=== PATIENT | male | born 1940 | race Caucasian/White ===

== ENCOUNTER 2018-06-06 12:41 | Observation (INO) ==
[2018-06-06] MEDS ORDERED: ASPIRIN 81 MG TAB.CHEW PO ONE (13:09)
[2018-06-06 13:12] LABS: Hematocrit 40.6 % (42.0-52.0); Hemoglobin 14.1 gm/dL (13.5-18.0); Mean Cell Volume 99.5 fl (78-100); Mean Corpuscular Hemoglobin 34.6 pg (27-31); Mean Corpuscular Hgb Conc 34.7 g/dl (32-36); Mean Platelet Volume 9.9 fl (8-11.3); Neutrophil # 3.9 K/mm3 (1.3-6.0); Neutrophil % 57.8 % (42-75.0); Platelet Count 160 K/mm3 (150-450); Red Blood Count 4.08 M/mm3 (4.7-6.0); Red Cell Distribution Width 11.9 % (11.5-14.0); White Blood Count 6.8 K/mm3 (4.0-10.5)
[2018-06-06 13:23] LABS: Prothrombin Time (Patient) 10.6 Seconds (9.1-10.7)
[2018-06-06 13:29] LABS: INR 1.07 INR (0.92-1.08); Partial Thrombolplastin Time 22.7 Seconds (24-32)
[2018-06-06 13:30] LABS: Albumin * 3.4 gm/dl (3.4-5.0); Anion Gap 13.5 mmol/L (6.8-13.8); BUN/Creatinine Ratio 10.7 (9.0-21.6); Bilirubin, Total 1.6 mg/dL (0.0-1.1); Ca. Corrected For Albumin 8.8 mg/dL (8.4-10.2); Calcium * 8.6 mg/dL (7.9-10.9); Carbon Dioxide 25.6 mmol/L (24-32.6); Potassium 4.1 mmol/L (3.4-4.6); Total Protein 7.3 gm/dL (6.2-8.2); Troponin I 0.045 ng/mL (0.00-0.10)
[2018-06-06] MEDS: NITROGLYCERIN 0.4 MG/TAB BTL SL PRN ×3 (13:46→13:59)
[2018-06-06] MEDS ORDERED: LEVOFLOXACIN IN DEXTROSE 5 % 500 MG/100 ML BAG IV SCH (15:15)
[2018-06-06] MEDS ORDERED: NITROGLYCERIN 1 INCH PACKET TD ONE (15:53)
[2018-06-06] MEDS ORDERED: ENOXAPARIN SODIUM 100 MG/ML SYRG SC ONE (15:57)
--- NOTE | 2018-06-06 16:44 | ERNOTE ---
Chest Pain/Cardiac HPI Date of Service: 06/06/18 Chief Complaint: Chest Pain Time Seen by Provider: 06/06/18 13:07 Source: patient Exam Limitations: no limitations Immunizations: IMMUNIZATION HX Immunizations Up to Date Yes History of Influenza Vaccine Yes Hx Pneumococcal Vaccination Yes Allergies/Adverse Reactions: Allergies No Known Allergies Allergy (Verified 06/06/18 12:48) Home Medications: HOME MEDICATIONS Atenolol 01/13/15 [Last Taken Unknown] Losartan Potassium 01/13/15 [Last Taken Unknown] Simvastatin 01/13/15 [Last Taken Unknown] Narrative: Patient presents to the ED for chest pain and left arm pain. He has been having some issues for over a week now. he had been seen here and went to [facility] due to elevated trop. That apparently normalized and he was sent home with a diagnosis of influenza and is on ABx. He developed left arm pain today and chest pain with nausea. This is like what he gets with prior cardiac pain by his report. He has been coughing wite thick sputum. No fever. ASA and NTG given here. Pain resolved with NTG. Timing: constant Severity/Quality: moderate Location: left chest Chest Pain Radiation: other - left arm Activities at Onset: none Modifying Factors - Improves: Present: nitroglycerin Modifying Factors - Worsens: Present: nothing Nitro Today/Relief: provided by ED Aspirin Treatment Today: provided by ED Associated Symptoms: Present: nausea. Absent: headache, diaphoresis, vomiting Prior Chest Pain/Cardiac Workup: Reports: prior chest pain, other - recent elevated trop, no diagnostic testing by report Prior Treatment: Reports: recently hospitalized, currently on antibiotics Review of Systems - Review of Systems Constitutional: Absent: fever ENT: Absent: sore throat Respiratory: Present: cough Cardiology: Present: chest pain Gastrointestinal/Abdominal: Absent: abdominal pain Genitourinary: Absent: dysuria Skin: Absent: rash All Other Systems: All systems neg except as marked Medical History (Last Reviewed 06/06/18 @ 16:38 by Stanley Tristan MD) HTN (hypertension) Heart attack Hyperlipemia Stroke Surgical History: Surgical History (Last Reviewed 06/06/18 @ 16:38 by Stanley Tristan MD) H/O heart artery stent H/O neck surgery Previous back surgery Family History: Family History (Last Reviewed 06/06/18 @ 16:38 by Stanley Tristan MD) Other No pertinent family history Social History: Preferred Language Northern Irish Smoking Status Never smoker Alcohol Use none Drug Use none No Social History Section defined Physical Exam - Physical Exam General Appearance: Present: alert, no apparent distress Head Exam: Present: normal inspection, no evidence of injury Eye Exam: Normal inspection: bilateral, PERRL: bilateral Ears, Nose, Throat: Present: normal ENT inspection Neck: Present: normal inspection Respiratory: Present: no respiratory distress, normal breath sounds, no accessory muscle use, lungs clear Cardiovascular/Chest: Present: regular rate, rhythm, normal peripheral pulses Gastrointestinal/Abdominal: Present: normal bowel sounds, nontender, nondistended, soft Back Exam: Present: normal range of motion Extremity Exam: Present: normal inspection, other - no CVA tenderness Neurological Exam: Present: alert, no motor/sensory deficits Skin Exam: Present: normal color, warm/dry Progress - Results and Orders Patient's Lab Results:: I have reviewed the patient's lab results. - Vital Signs Patient's Vital Signs:: I have reviewed the patient's vital signs. Vital Signs: Vital Signs 06/06/18 12:50 06/06/18 13:47 06/06/18 13:55 Temperature 36.2 C Pulse Rate 71 58 L 58 L Respiratory Rate 18 15 14 Blood Pressure 136/73 155/83 H 132/68 O2 Sat by Pulse Oximetry 97 96 92 L 06/06/18 14:50 06/06/18 16:17 Temperature Pulse Rate 59 L 109 H Respiratory Rate 19 15 Blood Pressure 149/75 172/80 H O2 Sat by Pulse Oximetry 94 96 - EKG EKG #1 EKG read: Interp. by me EKG Comments: NSR rate 68. Non-specific, no STEMI noted. - X-Ray X-Ray #1 X-Ray: chest Interpretation: Interp. by me X-ray Comments: I reviewed official radiology report - CT/Ultrasound CT/Ultrasound Narrative: I reviewed official CT report Chest CT per radiology. - Progress/Reassessment Chief Complaint: Chest Pain Progress Note-Subjective: 06/06/18 16:41 Patient pain free with ASA and NTG. TF NTG placed. Patient had infectious Sx, based on my read of his CXR I initiated Levaquin, however CT did not show pneumonia. CT did reveal possible although unlikely filling defect. Lovenox given. I felt patient needed rule out and observation. [facility] ok'd stay here. Patient wanted to stay here vs go back to [facility]. D/W Dr Dyson who will admit the patient obs. Patient agreeable. Departure Clinical Impression: Chest pain - Departure Disposition: Still a patient Condition: Stable
--- NOTE | 2018-06-06 18:39 | HP ---
Chief Complaint - Chief Complaint Date of Service: 06/06/18 Time of Service: 18:26 Chief Complaint: left chest pressure History of Present Illness: Patient with past medical history of previous DE, hypertension, recent positive influenza diagnosis presented to the ER for left-sided chest and arm pressure. He had been in our ER last week, and was shipped to [facility] for an elevated troponin. He was treated with Tamiflu and possibly azithromycin for the flu and upper respiratory infection. He was discharged 3 days prior. He had an DE around 1988, and he states his presentation at that time was purely nausea. He was given Nitropaste in the ED, and his chest pressure and nausea have subsided. He does have some upper respiratory congestion and shortness of breath. Medical History (Last Reviewed 06/06/18 @ 17:58 by Karen Miels RN) HTN (hypertension) Heart attack Hyperlipemia Stroke Surgical History: Surgical History (Last Reviewed 06/06/18 @ 17:58 by Karen Miles RN) H/O heart artery stent H/O neck surgery Previous back surgery Family History: Family History (Last Reviewed 06/06/18 @ 17:58 by Karen Miles RN) Other No pertinent family history Social History: Patient Lives/Resources Home Utilized Occupation Retired Preferred Language Welsh Smoking Status Former smoker Have you smoked in the past 12 No months Alcohol Use none Drug Use none No Social History Section defined Review Of Systems (GEN) - Review of Systems Generalized/Overall Review: Absent: Fever EENTM: Present: Nose Congestion Respiratory: Present: Shortness of Breath. Absent: Wheezing Cardiac: Present: Other - Chest pressure on the left Abdominal: Present: Nausea. Absent: Vomiting, Diarrhea Genitourinary: Present: No Symptoms Reported Skin: Present: No Symptoms Reported Immunizations: IMMUNIZATION HX Immunizations Up to Date Yes History of Influenza Vaccine Yes Hx Pneumococcal Vaccination Yes Allergies/Adverse Reactions: Allergies Allergy/AdvReac Type Severity Reaction Status Date / Time No Known Allergies Allergy Verified 06/06/18 17:58 Home Medications: HOME MEDICATIONS Atenolol 01/13/15 [Last Taken Unknown] Losartan Potassium 01/13/15 [Last Taken Unknown] Simvastatin 01/13/15 [Last Taken Unknown] Exam - Exam Vital Signs: Vital Signs - Last Taken Temp 36.3 C 06/06/18 17:50 Pulse 62 06/06/18 17:50 Resp 16 06/06/18 17:50 BP 127/61 06/06/18 17:50 Pulse Ox 97 06/06/18 17:50 Constitutional: Present: Alert, Oriented x3, Obese Respiratory: Present: normal breath sounds, no respiratory distress Cardiovascular/Chest: Present: regular rate, rhythm, no chest tenderness, no murmur, other - Bowel sounds in the chest. Absent: edema Abdomen: Present: soft, nontender Neurologic: Present: normal mood/affect Diagnostic Studies: Abnormal Lab Results 06/06/18 06/06/18 06/06/18 Range/Units 13:07 13:07 13:07 RBC 4.08 L (4.7-6.0) M/mm3 Hct 40.6 L (42.0-52.0) % MCH 34.6 H (27-31) pg Monocytes % 12.3 H (0.0-9) % PTT ([place]) 22.7 L (24-32) Seconds D-Dimer (0.19-0.49) ug/mL Random Glucose 124 H (70-110) mg/dL Total Bilirubin 1.6 H (0.0-1.1) mg/dL 06/06/18 Range/Units Unknown RBC (4.7-6.0) M/mm3 Hct (42.0-52.0) % MCH (27-31) pg Monocytes % (0.0-9) % PTT ([place]) (24-32) Seconds D-Dimer 0.87 H (0.19-0.49) ug/mL Random Glucose (70-110) mg/dL Total Bilirubin (0.0-1.1) mg/dL Laboratory Results WBC 6.8 K/mm3 (4.0-10.5) 06/06/18 13:07 RBC 4.08 M/mm3 (4.7-6.0) L 06/06/18 13:07 Hgb 14.1 gm/dL (13.5-18.0) 06/06/18 13:07 Hct 40.6 % (42.0-52.0) L 06/06/18 13:07 MCV 99.5 fl (78-100) 06/06/18 13:07 MCH 34.6 pg (27-31) H 06/06/18 13:07 MCHC 34.7 g/dl (32-36) 06/06/18 13:07 RDW 11.9 % (11.5-14.0) 06/06/18 13:07 Plt Count 160 K/mm3 (150-450) 06/06/18 13:07 MPV 9.9 fl (8-11.3) 06/06/18 13:07 Immature Gran % (Auto) 0.40 % (0.001-0.429) 06/06/18 13:07 Immature Gran # (Auto) 0.03 K/mm3 (0.000-0.0310) 06/06/18 13:07 Neutrophils % 57.8 % (42-75.0) 06/06/18 13:07 Lymphocytes % 28.3 % (20-51) 06/06/18 13:07 Monocytes % 12.3 % (0.0-9) H 06/06/18 13:07 Eosinophils % 0.9 % (0.0-3.0) 06/06/18 13:07 Basophils % 0.3 % (0.0-1.0) 06/06/18 13:07 Nucleated RBC % 0.0 k/mm3 (0-1) 06/06/18 13:07 Neutrophils # 3.9 K/mm3 (1.3-6.0) 06/06/18 13:07 Lymphocytes # 1.91 k/mm3 (1.5-3.5) 06/06/18 13:07 Monocytes # 0.8 k/mm3 (0.0-1.0) 06/06/18 13:07 Eosinophils # 0.1 k/mm3 (0.0-0.7) 06/06/18 13:07 Absolute Basophils 0.0 k/mm3 (0.0-0.1) 06/06/18 13:07 PT 10.6 Seconds (9.1-10.7) 06/06/18 13:07 INR (Anticoag Therapy) 1.07 INR (0.92-1.08) 06/06/18 13:07 PTT ([place]) 22.7 Seconds (24-32) L 06/06/18 13:07 D-Dimer 0.87 ug/mL (0.19-0.49) H 06/06/18 Unknown Sodium 138 mmol/L (132-142) 06/06/18 13:07 Plasma Sodium 138 mmol/L (130-142) 06/06/18 13:07 Potassium 4.1 mmol/L (3.4-4.6) 06/06/18 13:07 Chloride 103 mmol/L (97-106) 06/06/18 13:07 Carbon Dioxide 25.6 mmol/L (24-32.6) 06/06/18 13:07 Anion Gap 13.5 mmol/L (6.8-13.8) 06/06/18 13:07 BUN 13 mg/dL (6-23) 06/06/18 13:07 Creatinine 1.21 mg/dL (0.4-1.4) 06/06/18 13:07 Est GFR (Non-Af Amer) 62 mL/min (60-130) 06/06/18 13:07 BUN/Creatinine Ratio 10.7 (9.0-21.6) 06/06/18 13:07 Random Glucose 124 mg/dL (70-110) H 06/06/18 13:07 Calcium 8.6 mg/dL (7.9-10.9) 06/06/18 13:07 Calcium Adj for Albumin 8.8 mg/dL (8.4-10.2) 06/06/18 13:07 Total Bilirubin 1.6 mg/dL (0.0-1.1) H 06/06/18 13:07 AST 28 U/L (0-48) 06/06/18 13:07 ALT 39 U/L (19-67) 06/06/18 13:07 Alkaline Phosphatase 71 U/L (50-170) 06/06/18 13:07 Troponin I 0.045 ng/mL (0.00-0.10) 06/06/18 13:07 Total Protein 7.3 gm/dL (6.2-8.2) 06/06/18 13:07 Albumin 3.4 gm/dl (3.4-5.0) 06/06/18 13:07 Assessment/Plan - Assessment/Plan (1) Chest pressure Assessment: Improved with Nitropaste. Will leave in place for 12 hours, then remove. Initial troponin not elevated at 0.045, no EKG changes thus far. Chest pain not reproducible with pressure. He does have cardiac risks, including previous DE, hyperlipidemia, hypertension, male, obesity. Will trend troponins and EKGs. If his troponin were to increase to greater than 0.7, will contact [facility] for potential transfer. There was a questionable filling defect on his CT of the chest for PE, however he currently does not have any abnormal vital signs. His d-dimer was only 0.87, so pulmonary embolism highly unlikely. He does take medication for reflux, indicating reflux may be contributing to his presentation. He has no consolidation on the chest CT, so we will not continue antibiotics. He was given 1 dose of Levaquin in the ED. If his chest pressure does not recur and troponin and EKGs are not positive, likely discharge tomorrow with outpatient stress test. Problem: Acute (2) Hypertension Assessment: His blood pressure has somewhat fluctuated, but is within acceptable range. Problem: Acute
[2018-06-06] MEDS ORDERED: LEVOFLOXACIN IN DEXTROSE 5 % 500 MG/100 ML BAG IV ONE (19:00)
[2018-06-07] MEDS ORDERED: ONDANSETRON 4 MG TAB.RAPDIS PO PRN (07:36)
[2018-06-07] MEDS ORDERED: ONDANSETRON 8 MG TAB.RAPDIS PO PRN (09:56)
[2018-06-07] MEDS ORDERED: NORMAL SALINE 1,000 ML IV PRN (10:01)
--- NOTE | 2018-06-07 10:05 | PN ---
Subjective - Date and Time Seen Date: 06/07/18 Time: 09:58 Subjective Narrative: Patient reports feeling worse this morning than he did during my evaluation yesterday evening. His nausea was worse after eating cereal for breakfast today. No vomiting. No further chest pressure. He has not yet taken his home medications, however he is unsure of the dosage. Objective - Review of Systems Generalized/Overall Review: Denies: Fever Respiratory: Denies: Cough, Shortness of Breath Cardiac: Denies: Chest Pain, Edema Abdominal: Reports: Nausea. Denies: Vomiting, Diarrhea Genitourinary Symptoms: Reports: No Symptoms Reported - Vitals Vitals: Last Vital Signs Temp 36.5 C 06/07/18 07:24 Pulse 58 L 06/07/18 07:24 Resp 16 06/07/18 07:24 BP 136/71 06/07/18 07:24 Pulse Ox 93 06/07/18 07:24 - Abnormal Lab Findings Abnormal Lab Findings: Abnormal Lab Results 06/06/18 06/06/18 06/06/18 Range/Units 13:07 13:07 13:07 RBC 4.08 L (4.7-6.0) M/mm3 Hct 40.6 L (42.0-52.0) % MCH 34.6 H (27-31) pg Monocytes % 12.3 H (0.0-9) % PTT ([place]) 22.7 L (24-32) Seconds D-Dimer (0.19-0.49) ug/mL Random Glucose 124 H (70-110) mg/dL Total Bilirubin 1.6 H (0.0-1.1) mg/dL 06/06/18 Range/Units Unknown RBC (4.7-6.0) M/mm3 Hct (42.0-52.0) % MCH (27-31) pg Monocytes % (0.0-9) % PTT ([place]) (24-32) Seconds D-Dimer 0.87 H (0.19-0.49) ug/mL Random Glucose (70-110) mg/dL Total Bilirubin (0.0-1.1) mg/dL - Exam Constitutional: Present: Alert - appears uncomfortable, Obese Respiratory: Present: no respiratory distress, wheezing - left anterior Cardiovascular/Chest: Present: bradycardia Abdomen: Present: soft, tender Extremity: Absent: lower extremity edema Assessment/Plan - Problems/Diagnosis (1) Nausea Problem: Acute Narrative: His nausea is worse this morning than it was yesterday evening. Will increase Zofran dose to 8 mg every 6 hours as needed. He has been unable to maintain p.o. hydration, and will give 1 L of fluids throughout the day today. May be secondary to his influenza. (2) Chest pressure Problem: Resolved Narrative: Max troponin of 0.058, no signs of infarct or ischemia on EKGs. His nitro patch was held to his skin by tape, however the patch itself was not in contact with his skin. This was removed this morning. Recommend stress test after discharge. (3) Influenza Problem: Acute Narrative: He reports being diagnosed with influenza 6 days ago, but had been sick for several days prior to that. (4) Hypertension Problem: Chronic Narrative: He is unsure of his losartan dose, however his blood pressure is not elevated. Will verify his dose at the [facility], and restart if his pressure is consistently greater than 140/90.
[2018-06-07] MEDS ORDERED: FAMOTIDINE 20 MG TABLET PO PRN (12:03)
[2018-06-07] MEDS ORDERED: SENNOSIDES/DOCUSATE SODIUM 1 TAB TABLET PO PRN (12:03)
[2018-06-07] MEDS: PROMETHAZINE HCL 25 MG TABLET PO PRN ×2 (16:04→20:49)
[2018-06-07] MEDS ORDERED: TAMSULOSIN HCL 0.4 MG CAP.SR.24H PO SCH (18:00)
[2018-06-08] MEDS ORDERED: ASPIRIN 81 MG TAB.CHEW PO SCH (09:00)
--- NOTE | 2018-06-08 10:30 | DS ---
(1) Nausea Problem: Acute (2) Chest pressure Problem: Resolved (3) Influenza Problem: Acute (4) Hypertension Problem: Chronic Description of Stay: Patient with past medical history of previous OK, hypertension, recent positive influenza diagnosis presented to the ER for left-sided chest and arm pressure. He had been in our ER last week, and was shipped to [facility] for an elevated troponin, up to approximately 0.5. He was treated with Tamiflu and possibly azithromycin for the flu and upper respiratory infection. He was discharged from [facility] 3 days prior. He had an OK around 1988, and he states his presentation at that time was purely nausea. He was given Nitropaste in the ED, and his chest pressure and nausea have subsided. He does have some upper respiratory congestion and shortness of breath. He was admitted to monitor for ACS. Troponin did not significantly elevate, and he did not have signs of ischemia or infarct on EKG. He continued to have the nausea, and had significant concern that the nausea was another OK. He reports being overdue to see his sorter operator, to ensure his stents are still fully functional. Will order an outpatient stress test after DC. Also recommend he see his sorter operator. He expressed concern about being able to fix his meals and clean his house after DC. [facility] Procedures Performed: none Results and Findings: Pending Mircobiology Results 06/06/18 15:27 Blood Blood Culture - Preliminary NO GROWTH 24 HOURS 06/06/18 15:10 Blood Blood Culture - Preliminary NO GROWTH 24 HOURS Lab Pending Results 06/06/18 13:07: WBC 6.8, RBC 4.08 L, Hgb 14.1, Hct 40.6 L, MCV 99.5, MCH 34.6 H, MCHC 34.7, RDW 11.9, Plt Count 160, MPV 9.9, Immature Gran % (Auto) 0.40, Immature Gran # (Auto) 0.03, Neutrophils % 57.8, Lymphocytes % 28.3, Monocytes % 12.3 H, Eosinophils % 0.9, Basophils % 0.3, Nucleated RBC % 0.0, Neutrophils # 3.9, Lymphocytes # 1.91, Monocytes # 0.8, Eosinophils # 0.1, Absolute Basophils 0.0 06/06/18 13:07: PT 10.6, INR (Anticoag Therapy) 1.07, PTT ([place]) 22.7 L 06/06/18 13:07: Sodium 138, Plasma Sodium 138, Potassium 4.1, Chloride 103, Carbon Dioxide 25.6, Anion Gap 13.5, BUN 13, Creatinine 1.21, Est GFR (Non-Af Amer) 62, BUN/Creatinine Ratio 10.7, Random Glucose 124 H, Calcium 8.6, Calcium Adj for Albumin 8.8, Total Bilirubin 1.6 H, AST 28, ALT 39, Alkaline Phosphatase 71, Troponin I 0.045, Total Protein 7.3, Albumin 3.4 06/06/18 19:15: Troponin I 0.058 06/06/18 22:40: Troponin I 0.055 06/06/18 : D-Dimer 0.87 H 06/07/18 02:00: Troponin I 0.048 Discharge Location: Home Disposition: Home self-care Condition: Stable Discharge Activity: Activity as tolerated Discharge Diet: Resume usual diet Additional Patient Instructions (free text): PCP is at [facility]. Licha Haines NP. Please make f/u within 1 week. Fax DC orders, H&P and DC summary, . Complete Home Medications List: Complete Home Medication List: Atenolol [Tenormin] 25 mg PO DAILY 01/13/15 Atorvastatin Calcium 40 mg PO DAILY 01/13/15 Aspirin 81 mg PO DAILY 06/07/18 Cholecalciferol (Vitamin D3) [Vitamin D3] 1,000 unit PO DAILY 06/07/18 Ibuprofen 400 mg PO TID PRN 06/07/18 Losartan Potassium 100 mg PO DAILY 06/07/18 Ranitidine HCl 75 mg PO BID PRN 06/07/18 Sennosides/Docusate Sodium [Docusate Sodium-Senna Tablet] 1 ea PO BID PRN 06/07/18 Tamsulosin HCl [Flomax] 0.4 mg PO DAILY 06/07/18 Amb Orders for Discharge: NUC Treadmill Stress Test Time Frame: 1 Month, Location: Radiology
[2018-06-08 13:04] VITALS: BP 129/58
== END 2018-06-08 12:05 | disposition home or self-care (01) ==
LOC: ER 12:41 → MS 12:41
PROVIDERS: ADMIT Family Medicine; ATTEND Family Medicine
DX: R07.89 Other chest pain; I10 Essential (primary) hypertension; R11.0 Nausea; J11.1 Influenza due to unidentified influenza virus with other respiratory manifestations
CPT/HCPCS: 36415; 71020; 71046; 71275; 80053; 84484; 85025; 85379; 85610; 85730; 87040; 93005; 96361; 96365; 96372; 99285; G0378; Q9967